=== PATIENT | female | born 1965 | race Caucasian/White ===

== ENCOUNTER 2018-01-22 19:34 | Emergency (ER) | payer BC ==
[2018-01-22 20:25] LABS: ABSOLUTE LYMPHOCYTES (AUTO) 0.4 10^3/uL (0.5-4.7); ABSOLUTE MONOCYTES (AUTO) 0.1 10^3/uL (0.1-1.4); ABSOLUTE NEUT (AUTO) 0.1 10^3/uL (1.7-8.2); BASOPHILS % (AUTO) 0.9 % (0-2); EOSINOPHILS % (AUTO) 1.8 % (0-6); HEMATOCRIT 27.2 % (36.0-47.0); HEMOGLOBIN 9.2 g/dL (12.0-15.5); LYMPHOCYTES % (AUTO) 59.3 % (13-45); MEAN CORPUSCULAR HEMOGLOBIN 32.9 pg (27.0-33.4); MEAN CORPUSCULAR HGB CONC 33.9 g/dL (32.0-36.0); MEAN CORPUSCULAR VOLUME 97 fl (80-97); MONOCYTES % (AUTO) 21.6 % (3-13); RED BLOOD COUNT 2.81 10^6/uL (3.72-5.28); RED CELL DISTRIBUTION WIDTH 18.3 % (11.5-14.0); SEGMENTED NEUTROPHILS % (AUTO) 16.4 % (42-78); TOTAL CELLS COUNTED % (AUTO) 100 %
[2018-01-22] MEDS ORDERED: CEFEPIME 2 GM/D5W RTU 2 GM/50 ML RTUPB IV ONE (20:26)
[2018-01-22 20:28] LABS: INTERNATIONAL RATION (INR) 0.94
[2018-01-22] MEDS ORDERED: ACETAMINOPHEN 325 MG TABLET PO ONE (20:33)
--- NOTE | 2018-01-22 20:47 | RADIOLOGY REPORT (SQ) ---
EXAM DESCRIPTION: CHEST SINGLE VIEW COMPLETED DATE/TIME: 01/22/2018 8:37 pm REASON FOR STUDY: fever COMPARISON: None. EXAM PARAMETERS: NUMBER OF VIEWS: One view. TECHNIQUE: Single frontal radiographic view of the chest acquired. RADIATION DOSE: NA LIMITATIONS: None. FINDINGS: LUNGS AND PLEURA: No opacities, masses or pneumothorax. No pleural effusion. MEDIASTINUM AND HILAR STRUCTURES: No masses. Contour normal. HEART AND VASCULAR STRUCTURES: Heart normal in size. Normal vasculature. BONES: No acute findings. HARDWARE: Injection port on the right. OTHER: No other significant finding. IMPRESSION: NO ACUTE RADIOGRAPHIC FINDING IN THE CHEST. TECHNICAL DOCUMENTATION: JOB ID: [id number] All- All Rights Reserved Reading location - IP/workstation name: [email or web address]
[2018-01-22 20:48] LABS: ALANINE AMINOTRANSFERASE 13 U/L (9-52); ALBUMIN 3.5 g/dL (3.5-5.0); ALKALINE PHOSPHATASE 68 U/L (38-126); ANION GAP 10 (5-19); ASPARTATE AMINO TRANSFERASE 12 U/L (14-36); BILIRUBIN,DIRECT 0.1 mg/dL (0.0-0.4); BILIRUBIN,TOTAL 0.5 mg/dL (0.2-1.3); BLOOD UREA NITROGEN 13 mg/dL (7-20); CALCIUM 9.1 mg/dL (8.4-10.2); CARBON DIOXIDE 22 mmol/L (22-30); CHLORIDE 105 mmol/L (98-107); GLUCOSE 133 mg/dL (75-110); SODIUM 137.3 mmol/L (137-145); TOTAL PROTEIN 6.2 g/dL (6.3-8.2)
[2018-01-22] MEDS: NORMAL SALINE 1000 ML 1,000 ML IV PRN ×2 (20:48→21:51)
[2018-01-22 20:59] LABS: ANISOCYTOSIS 2+; OVALOCYTES 2+; PLATELET COMMENT DECREASED; POIKILOCYTOSIS 3+; TEAR DROP CELLS 1+
[2018-01-22 21:03] LABS: PLATELET COUNT 78 10^3/uL (150-450)
[2018-01-22 21:04] LABS: WHITE BLOOD COUNT 0.6 10^3/uL (4.0-10.5)
[2018-01-22 21:51] LABS: VENOUS BLOOD BASE EXCESS -3.4 mmol/L; VENOUS BLOOD HCO3 20.6 mmol/L (20-32); VENOUS BLOOD PCO2 33.7 mmHg (35-63); VENOUS BLOOD PH 7.41 (7.30-7.42)
[2018-01-22] MEDS ORDERED: HYDROCODONE BIT/HOMATROPINE 5-1.5 MG TABLET PO ONE (22:37)
[2018-01-23 00:03] LABS: APPEARANCE,URINE CLEAR; BILIRUBIN,URINE NEGATIVE (NEGATIVE); COLOR,URINE YELLOW; GLUCOSE, URINE NEGATIVE (NEGATIVE); KETONES,URINE NEGATIVE (NEGATIVE); LEUKOCYTE ESTERASE,URINE NEGATIVE (NEGATIVE); NITRITE,URINE NEGATIVE (NEGATIVE); PROTEIN,URINE NEGATIVE (NEGATIVE); URINE SPECIFIC GRAVITY 1.006; UROBILINOGEN,URINE NEGATIVE mg/dL (<2.0)
[2018-01-23 00:11] LABS: A TYPE INFLUENZA AG NEGATIVE (NEGATIVE)
[2018-01-23 00:12] LABS: B INFLUENZA AG NEGATIVE (NEGATIVE)
[2018-01-23] MEDS ORDERED: FENTANYL CITRATE INJ/PF 100 MCG/2 ML AMPUL IV ONE (01:00)
[2018-01-23] MEDS ORDERED: VANCOMYCIN HCL INJ 1000 MG VIAL IV ONE (01:24)
[2018-01-23] MEDS ORDERED: ONDANSETRON HCL INJ/PF 4 MG/2 ML SDV IV ONE (01:25)
--- NOTE | 2018-01-23 01:28 | ER Document Report ---
ED Fever - General Chief Complaint: Fever Stated Complaint: FEVER,CHEMO PATIENT Time Seen by Provider: 01/22/18 20:24 Mode of Arrival: Ambulatory TRAVEL OUTSIDE OF THE [place] IN LAST 30 DAYS: No - HPI Patient complains to provider of: fevers Onset: Other - 52-year-old female Active chemotherapy including doxorubicin for breast cancer. She presents for fevers times 1 day and general malaise. She is denies any history of headache at this time, does endorse a slight runny nose , denies any cough or chest pain, denies any abdominal pain, denies any dysuria. She is never had anything like this before nothing is seem to make it any better or worse, her temperature got to 100.7 degrees prior to arrival that prompted her to seek further care. - Related Data Allergies/Adverse Reactions: adhesive tape Allergy (Verified 01/22/18 19:35) Past Medical History - General Information source: Patient - Social History Smoking Status: Never Smoker Family History: None, Malignancy Patient has suicidal ideation: No Patient has homicidal ideation: No Renal/ Medical History: Denies: Hx Peritoneal Dialysis Review of Systems - Review of Systems -: Yes All other systems reviewed and negative Physical Exam - Vital signs Vitals: Temp Pulse Resp BP Pulse Ox 99.7 F 142 H 20 127/72 H 94 01/22/18 19:39 01/22/18 19:39 01/22/18 19:39 01/22/18 19:39 01/22/18 19:39 - General General appearance: Anxious In distress: Mild - HEENT Head: Normocephalic Eyes: Normal Conjunctiva: Normal Cornea: Normal Extraocular movements intact: Yes Eyelashes: Normal Pupils: PERRL - Respiratory Respiratory status: No respiratory distress Chest status: Nontender Breath sounds: Normal Chest palpation: Normal - Cardiovascular Rhythm: Tachycardia Heart sounds: Normal auscultation Murmur: No - Abdominal Inspection: Normal Tenderness: Nontender - Back Back: Normal - Extremities General upper extremity: Normal inspection, Nontender, Normal strength, Normal temperature General lower extremity: Normal inspection, Nontender, Normal strength, Normal temperature - Neurological Neuro grossly intact: Yes Cognition: Normal Orientation: AAOx4 Cushing Coma Scale Eye Opening: Spontaneous Babar Coma Scale Verbal: Oriented Babar Coma Scale Motor: Obeys Commands Babar Coma Scale Total: 15 Speech: Normal Cranial nerves: Normal Motor strength normal: LUE, RUE, LLE, RLE - Psychological Associated symptoms: Normal affect Course - Re-evaluation Re-evalutation: 01/23/18 04:36 Here is a 52-year-old woman who is currently on an aggressive chemotherapy regimen 8 days status post her last chemotherapy. She presents for fever, she is at high risk for neutropenic fever given the regiment which she is on which does contain doxorubicin. On initial evaluation this patient is tachycardic with a normal blood pressure she does not look particularly well but does not look in extremis. Because of the concern for her potential neutropenic fever prior to obtaining labs initiated treatment with copious IV fluids as well as broad-spectrum antibiotics including cefepime and vancomycin. Obtained CBC CMP blood cultures urinalysis chest x-ray and blood gas. Patient's lactate is 1.6, she is markedly tachycardic however to the 140 range. Have administered Tylenol to this patient though she is on chemotherapy believe it is in her best interest to dose her for her analgesia and fever. CBC demonstrates a true neutropenia, a white blood cell count of 0.6 with a neutrophil count of 16% suggestive of an actual neutrophil count of somewhere around 50-80. She is received cefepime at this time as well as 2 L of fluid and Zofran and Tylenol. She continues to be tachycardic, I have called [facility] as this patient is currently receiving oncology care through their hospital and I believe it is in her best interest to be at their center. She is tolerating her tachycardia with a normal blood pressure, will administer 1/3 L of fluid as well as more Zofran and fentanyl for her and now developing headache. Have spoken to the on-call hospitalist Dr. DODIE Staley who is in agreement that the patient would benefit from transfer to their hospital as I think that this patient represents a serious potential for decompensation and have agreed for rapid transport. Patient is continuing to be tachycardic in the emergency department but is neurologically appropriate, at the time of transfer this patient remained hemodynamically stable. She had received vancomycin as well as cefepime blood cultures and blood work. Uncertain at this time what are potential source of infection is as it may be a URI developing urinary tract infection or some other more insidious process. - Vital Signs Vital signs: Temp Pulse Resp BP Pulse Ox 98.8 F 114 H 17 111/52 L 97 01/22/18 22:30 01/22/18 22:30 01/23/18 02:00 01/23/18 01:13 01/23/18 02:00 - Laboratory Result Diagrams: 01/22/18 20:02 01/22/18 20:02 Laboratory results interpreted by me: 01/22/18 01/22/18 01/22/18 20:02 20:02 21:38 WBC 0.6 L* RBC 2.81 L Hgb 9.2 L Hct 27.2 L RDW 18.3 H Plt Count 78 L Seg Neutrophils % 16.4 L Lymphocytes % 59.3 H Monocytes % 21.6 H Absolute Neutrophils 0.1 L Absolute Lymphocytes 0.4 L VBG pCO2 33.7 L Glucose 133 H AST 12 L Total Protein 6.2 L Critical Care Note - Critical Care Note Total time excluding time spent on procedures (mins): 35 Discharge - Discharge Clinical Impression: Neutropenic fever, Tachycardia Breast cancer Qualifiers: Breast location: unspecified site of breast Estrogen receptor status: unspecified Patient sex: female Laterality: unspecified laterality Qualified Code(s): C50.919 - Malignant neoplasm of unspecified site of unspecified female breast Headache Qualifiers: Headache type: unspecified Headache chronicity pattern: unspecified pattern Intractability: not intractable Qualified Code(s): R51 - Headache Condition: Stable Disposition: [facility]
[2018-01-23 02:08] VITALS: BP 111/52
--- NOTE | 2018-01-23 08:27 | EKG REPORT ---
SEVERITY:- OTHERWISE NORMAL ECG - SINUS TACHYCARDIA : Confirmed by: Juanjose Back 23-Jan-2018 08:26:12
[2018-01-23 14:37] LABS: PATH REVIEW PATHOLOGIST REVIEWED
== END 2018-01-23 01:40 | disposition short-term general hospital (02) ==
LOC: ER 19:34
DX: D70.9 Neutropenia, unspecified (principal); R50.81 Fever presenting with conditions classified elsewhere; R00.0 Tachycardia, unspecified; R51 Headache; R53.81 Other malaise; C50.919 Malignant neoplasm of unspecified site of unspecified female breast
CPT/HCPCS: 93005; 99291; 96361; 96375; 96365; 36415; 87040; 87086; 85025; 85610; 80053; 81001; 82803; 83605; 87804; 71045; 93010; J3010; J2405; J7030; J3370; J0692